=== PATIENT | female | born 2000 | race Caucasian/White ===

== ENCOUNTER 2024-11-13 13:14 | Emergency (ER) | payer MEDICAID ==
[~2024-11-13] VITALS: Ht 162.6 cm; Wt 79.8 kg
[2024-11-13] MEDS ORDERED: ONDANSETRON HCL/PF 4 MG/2 ML VIAL ONE (14:06)
[2024-11-13] MEDS ORDERED: ACETAMINOPHEN ES 500 MG TABLET ONE (14:06)
[2024-11-13] MEDS: ACETAMINOPHEN ES 500 MG TABLET PO ONE (14:17)
[2024-11-13] MEDS: ONDANSETRON HCL/PF 4 MG/2 ML VIAL IVP ONE (14:17)
[2024-11-13 14:21] LABS: PLATELET COUNT (AUTO) 268 K/uL (150-450); RED BLOOD CELL COUNT(AUTO) 4.80 MIL/uL (4.0-5.2); RED CELL DISTRIBUTION WIDTH 12.7 % (11.5-15.0); WHITE BLOOD COUNT (AUTO) 7.8 K/uL (4.3-11.0)
[2024-11-13 14:29] LABS: CALCIUM, SERUM 9.3 mg/dL (8.5-10.1); CREATININE 0.8 mg/dL (0.6-1.3); SODIUM SERUM 142 mmol/L (136-145); UREA NITROGEN, BLOOD 11 mg/dL (7-18)
[2024-11-13 14:37] LABS: INR 0.97 (0.91-1.10)
[2024-11-13 16:13] LABS: PREGNANCY TEST URINE QUAL NEGATIVE (NEGATIVE)
[2024-11-13] MEDS ORDERED: KETOROLAC TROMETHAMINE 15 MG/ML VIAL ONE (16:14)
[2024-11-13] MEDS ORDERED: ONDA4TAB5 PO (16:18)
[2024-11-13] MEDS ORDERED: HYDR-3642 PO (16:18)
[2024-11-13] MEDS: KETOROLAC TROMETHAMINE 15 MG/ML VIAL IM ONE (16:18)
[2024-11-13] MEDS ORDERED: ACET325C7 PO (16:19)
[2024-11-13 16:28] VITALS: BP 107/72; TEMP 98.2; O2SAT 99
== END 2024-11-13 16:28 | disposition home or self-care (01) ==
LOC: ER 13:27
DX: R53.1 Weakness (principal); F41.9 Anxiety disorder, unspecified; R00.2 Palpitations; R06.02 Shortness of breath; R11.0 Nausea; R20.0 Anesthesia of skin; R20.2 Paresthesia of skin; R25.2 Cramp and spasm
CPT/HCPCS: 99285; 93970; 96374; 70450; 71045; 93005; 85025; 80048; 84703; 36415; 84484; 85730; 96372; J1885; Q0177; J2405